=== PATIENT | female | born 1985 | race Two or more races ===

== ENCOUNTER → 2017-02-23 | Outpatient (CLI) | payer BC | LOC: M LRY 12:10 | DX: Z53.8 Procedure and treatment not carried out for other reasons (principal) ==

== ENCOUNTER → 2019-02-05 | Outpatient (CLI) | payer BC ==
[~2019-02-05] MED LIST: MOM30SS PO; MOTR200T44 PO; PERCOCET PO
[2019-02-07 11:12] LABS: HEPATITIS C VIRUS ABY INDEX 0.1 INDEX (<0.8); HIV 1&2 SCREEN CENTAUR NEGATIVE (NEGATIVE)
== END ==
LOC: M PLALAB 12:28
PROVIDERS: ATTEND Obstetrics & Gynecology
DX: Z11.3 Encounter for screening for infections with a predominantly sexual mode of transmission (principal)

== ENCOUNTER → 2019-02-17 | Outpatient (CLI) | payer BC ==
--- NOTE | 2019-02-17 17:45 | REP ---
DIAGNOSTIC MAMMOGRAM BILATERAL BREASTS WITH 3D TOMOSYNTHESIS AND BILATERAL BREAST ULTRASOUND: No family history of breast cancer. [facility] lifetime risk of breast cancer is 10.9%. The patient has a history of three long standing palpable lumps at 10 o'clock, 3 o'clock and 6 o'clock in the right breast. The areas are marked on the skin. The patient has had prior benign biopsy of a nodule in the right breast medially. This corresponds to one of the palpable lumps. Comparison is made with prior mammogram and ultrasound 10/22/2015. MLO and CC views of both breasts were performed with 3D tomosynthesis and additional compression views of the right breast. Oval fairly well circumscribed nodule is seen in the upper quadrant of the right breast at one of the palpable lumps, maximum diameter of the nodule is 3.6 cm. At 6 o'clock posteriorly at the site of another palpable lump there is a fairly well circumscribed and mildly lobulated nodule approximately 3.6 cm maximally. At 3 o'clock medially in the right breast there is a lobulated nodule with fairly well defined margins which has significantly increased in size when compared to the prior study. An adjacent biopsy clip was noted. This nodule measures 4.4 cm in diameter. There is another smaller oval fairly well circumscribed nodule in the upper outer quadrant of the right breast in the axillary tail region measuring about 1.1 cm in maximum diameter. There appear to be a couple adjacent axillary lymph nodes. In the left breast a fairly well circumscribed nodule is seen in the lower inner aspect measuring about 1 cm in diameter. Another nodule in the upper outer quadrant measures 7 mm in diameter. Moderate fibroglandular tissue is scattered bilaterally. No clustered microcalcifications are seen. Real-time sonographic evaluation is performed bilaterally. All of the nodules identified bilaterally are solid in appearance. In the right breast at 10 o'clock a bilobed solid mass measures 3.0 x 1.5 x 3.1 cm, at 3 o'clock 3.1 x 2.3 x 4.0 cm and at 6 o'clock 3.1 x 1.5 x 3.6 cm. The mass is at 6 o'clock and 10 o'clock appear new and the 3 o'clock mass has significantly increased in size when compared to the prior study of 10/22/2015. A smaller solid nodule more posteriorly in the outer quadrant of the right breast measures 1.4 x 0.8 x 1.4 cm. In the left breast the previous solid nodules at 12 o'clock measuring 8 mm maximally, at 2 o'clock measuring 9 mm maximally, at 8 o'clock measuring 8 mm maximally and at 9 o'clock measuring 7 mm maximally. IMPRESSION: ACR 4 suspicious. At the site of the 3 dominant palpable lumps in the right breast there are solid masses as discussed above with maximum diameter at the 10 o'clock mass 3.1 cm, at 3 o'clock 4.0, and 6 o'clock 3.6 cm. Two of the nodules appear new and one has significantly increased in size compared to 10/22/2015 exam, I would recommend at least ultrasound guided biopsy. Consideration should be made for surgical excision given the change compared to the 2016 exam, and their size. Recommend 6 month followup ultrasound for the posterior nodule in the right breast at 10 o'clock and also for the 4 subcentimeter nodules in the left breast. BIRADS 4: BI-RADS/ACR category 4 mammogram. Suspicious Abnormality - biopsy should be considered. This mammogram was interpreted with the aid of an FDA-approved computer-aided detection system. The patient states she had a clinical breast exam in 02/13/2019. The patient letter being requested is M4. Electronically Signed by Gianni Baig MD 02/20/2019 12:28 P
== END ==
LOC: M RAD 13:31
PROVIDERS: ATTEND Surgery
DX: R92.8 Other abnormal and inconclusive findings on diagnostic imaging of breast (principal); N63.10 Unspecified lump in the right breast, unspecified quadrant; N63.20 Unspecified lump in the left breast, unspecified quadrant
CPT/HCPCS: 76642; 77066; G0279

== ENCOUNTER 2019-04-01 07:32 | Day surgery (SDC) | payer BC ==
[~2019-04-01] VITALS: Ht 162.6 cm; Wt 78.7 kg
[~2019-04-01 07:32] MED LIST changes: +LEXA1TAB2 PO; +LIDOCAINE 2% INJ 100 MG/5 ML SDV (FOR ANES.) As Ordered ONE; +LR 1,000 ML IV ONE; +MIDAZOLAM INJ 2 MG/2 ML VIAL (J2250) As Ordered ONE; +NUVAMIS2 PV; +ONDANSETRON 4MG/2ML VIAL (J2405) As Ordered ONE; +ROCURONIUM BROMIDE 50 MG/5 ML VIAL As Ordered ONE; +ceFAZolin SOD 2 GM in IV 1 EA IV ONE; +dexameTHASONE 4 MG/ML 1ML VIAL (J1100) As Ordered ONE; +fentaNYL 100 MCG/2 ML INJECTION (J3010) As Ordered ONE; +propofoL 200 MG/20 ML VIAL As Ordered ONE
[2019-04-01] MEDS ORDERED: LIDOCAINE 1% SDV INJ 30 ML VIAL As Ordered ONE (10:42)
[2019-04-01] MEDS ORDERED: BUPIVACAINE HCL 0.25% 30 ML VIAL As Ordered ONE (10:42)
[2019-04-01] MEDS ORDERED: fentaNYL 100 MCG/2 ML INJECTION (J3010) As Ordered ONE (11:50)
[2019-04-01] MEDS ORDERED: ACETAMINOPHEN 1000MG 100ML IV BTL (OFIRMEV) (J0131 PER 10MG) As Ordered ONE (11:51)
[2019-04-01] MEDS ORDERED: METOCLOPRAMIDE INJ 10MG/2ML VIAL (J2765) As Ordered ONE (12:49)
[2019-04-01] MEDS ORDERED: fentaNYL 100 MCG/2 ML INJECTION (J3010) IV PRN (13:00)
[2019-04-01] MEDS ORDERED: HYDROMORPHONE HCL 0.5 MG/ 0.5 ML SYRINGE (J1170 PER 1) IV PRN (13:00)
[2019-04-01] MEDS ORDERED: LR 1,000 ML IV SCH (13:00)
[2019-04-01] MEDS ORDERED: oxyCODONE 5MG TAB PO PRN (13:00)
[2019-04-01] MEDS ORDERED: ONDANSETRON 4MG/2ML VIAL (J2405) IV PRN (13:00)
[2019-04-01] MEDS ORDERED: OXYC1TAB23 PO (13:17)
[2019-04-01] MEDS ORDERED: PILL CUTTER 1 EACH XX ONE (13:20)
[2019-04-01 14:55] VITALS: BP 120/77
--- NOTE | 2019-04-01 22:47 | ROOPDOC ---
[facility] Report Of Operation Report of Operation DATE OF PROCEDURE: 04/01/19 PREPROCEDURE DIAGNOSES: Right breast fibroadenomas POSTPROCEDURE DIAGNOSES: Right breast fibroadenomas PROCEDURE: Right breast excisional biopsy x3 SURGEON: Zev Perry CARE ASSOCIATE: ANESTHESIA: general ESTIMATED BLOOD LOSS: Approximately 5 mL. COMPLICATIONS: none REMARKS: 3 large breast masses with appearance of fibroadenomas DESCRIPTION OF PROCEDURE: INDICATIONS: Ms. 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 Since that time the fibroadenoma at 3:00 grew substantially. Patient also developed similar appearing breast masses at 6:00 and 10:00. The fibroadenomas measured between 3 and 4 cm each. Patient presented to the clinic for evaluation and discussion regarding removal of large fibroadenomas. Base on the size of the fibroadenomas, excision was recommended after obtaining full mammographic and sonographic evaluation. All three lesions had similar appearance consistent with fibroadenomas. Risks and possible complications of surgical procedure including bleeding, infection and injury to surrounding structures were explained to the patient and she wished to proceed. Consent was signed. The site of palpable lump was marked in PreOp and my initials were placed on the operative site (right). DETAILS: Patient was taken to the operating room and placed supine on the operating room table. A sign in was called stating patients name, date of and the procedure to be done. Preoperative antibiotics were infused. Smooth induction of general anesthesia was done. Patients hands were extended on arm rests and placed in the protective foam. Care was taken not to over extend patients arms. Patients right breast was prepped and draped in the usual fashion. The breast masses were confirmed in the operating room with the ultrasound perioperatively and were found to be again at 3:00, 6:00 and 10:00. No localizing wire had to be placed as the lesions were palpable. Appropriate time out was called confirming patients name, date of and proc edure to be done. Local anesthetic using 1% lidocaine and 0.25 % Marcaine 50/50 mix was injected at the planned incision site at the inferior aspect of the right areola. Inferior periareolar incision was made with scalpel number 15. Adequate flaps were raised at the areolar border. Dissection was started carried laterally toward the 3:00 mass. Combination of sharp and blunt dissection was used to dissect the mass. The 3:00 mass was resected as a whole and had an appearance of fibroadenoma. A ribbon clip was noted imbedded in the capsule of the mass. No localization suture were placed. Mass was marked with patient name and label right breast mass 3:00 and sent to pathology at the end of the case. Next, my attention was turned toward the mass at 6:00. Again, combination of sharp and blunt dissection was used to dissect the mass from the surrounding tissues. Mass was excised as a whole and had appearance of fibroadenoma. Mass was labeled with patients name and label right breast mass 6:00. No marking nix tures were placed. Mass was passed the pathology at the end of the case Finally, my attention was turned toward the mass at 10:00. Again, combination of sharp and blunt dissection was used to dissect the mass from the surrounding tissues. Mass was excised as a whole and had appearance of fibroadenoma. Mass was labeled with patients name and label right breast mass 10:00. No marking sutures were placed. Mass was passed the pathology at the end of the case. All three right breast cavities were irrigated thoroughly and hemostasis was assured. The deep layers were approximated with 3-0 Vicryl stitch to obliterate the space and to decrease possible breast deformity formation. The dermis was closed with 3-0 Monocryl and skin was closed with 4-0 Monocryl. Steri Strips were placed over the incision. All sponge and instrument counts were correct. Patient emerged from the anesthesia without any problems. Fluffs were placed over the operating site and patients lower chest was wrapped snuggly in the HARRISON wrap. Patient tolerated procedure well and was taken to recovery unit in stable condition. ZEV PERRY DO Apr 01, 2019 22:46
== END 2019-04-01 15:00 | disposition home or self-care (01) ==
LOC: M SDC 07:32
PROVIDERS: ATTEND Surgery
DX: D24.1 Benign neoplasm of right breast (principal); N60.21 Fibroadenosis of right breast; F32.9 Major depressive disorder, single episode, unspecified; F41.9 Anxiety disorder, unspecified; Z79.899 Other long term (current) drug therapy; Z87.891 Personal history of nicotine dependence
CPT/HCPCS: 19120; 81025; 88305; J0131; J0690; J1100; J2250; J2405; J2765; J3010

== ENCOUNTER → 2021-11-14 | Outpatient (CLI) | payer BC ==
[~2021-11-14] MED LIST changes: +ISOVUE-370 76% 100ML VIAL As Ordered ONE; -LIDOCAINE 2% INJ 100 MG/5 ML SDV (FOR ANES.) As Ordered ONE; -LR 1,000 ML IV ONE; -MIDAZOLAM INJ 2 MG/2 ML VIAL (J2250) As Ordered ONE; -ONDANSETRON 4MG/2ML VIAL (J2405) As Ordered ONE; +OXYC1TAB23 PO; -ROCURONIUM BROMIDE 50 MG/5 ML VIAL As Ordered ONE; -ceFAZolin SOD 2 GM in IV 1 EA IV ONE; -dexameTHASONE 4 MG/ML 1ML VIAL (J1100) As Ordered ONE; -fentaNYL 100 MCG/2 ML INJECTION (J3010) As Ordered ONE; -propofoL 200 MG/20 ML VIAL As Ordered ONE
[2021-11-14 12:09] LABS: BASO % 0.7 % (0.0-1.0); EOS # 0.2 10^3/uL (0.0-0.5); EOS % 3.8 % (0.0-3.0); HEMATOCRIT 38.1 % (36.0-47.0); LYMPH # 1.2 10^3/uL (1.5-5.0); LYMPH % 21.5 % (24.0-44.0); MEAN CORPUSCULAR HEMOGLOBIN 30.2 pg (27.0-33.0); MEAN CORPUSCULAR HGB CONC 34.1 g/dl (32.0-36.5); MEAN CORPUSCULAR VOLUME 88.4 fl (80.0-96.0); MONO # 0.3 10^3/uL (0.0-0.8); MONO % 5.4 % (2.0-8.0); NEUTROPHILS # 3.8 10^3/uL (1.5-8.5); NEUTROPHILS % 68.4 % (36.0-66.0); PLATELET COUNT, AUTOMATED 168 10^3/uL (150-450); RED BLOOD COUNT 4.31 10^6/uL (4.00-5.40); WHITE BLOOD COUNT 5.6 10^3/uL (4.0-10.0)
[2021-11-14 12:39] LABS: ALBUMIN 3.7 GM/DL (3.2-5.2); ALT/SGPT 21 U/L (12-78); AMYLASE 40 U/L (25-115); BLOOD UREA NITROGEN 9 MG/DL (7-18); CALCIUM LEVEL 8.5 MG/DL (8.5-10.1); CARBON DIOXIDE LEVEL 27 MEQ/L (21-32); CHLORIDE LEVEL 106 MEQ/L (98-107); CREATININE FOR GFR 0.58 MG/DL (0.55-1.30); GLOMERULAR FILTRATION RATE > 60.0 (>60); GLUCOSE, FASTING 81 MG/DL (70-100); POTASSIUM SERUM 3.7 MEQ/L (3.5-5.1); SODIUM LEVEL 139 MEQ/L (136-145); TOTAL PROTEIN 6.4 GM/DL (6.4-8.2)
== END ==
LOC: M RAD 10:51
PROVIDERS: ATTEND Physician Assistant
DX: R22.1 Localized swelling, mass and lump, neck (principal)
CPT/HCPCS: 70491; 80053; 82150; 85025; 86140; Q9967

== ENCOUNTER → 2022-01-09 | Outpatient (CLI) | payer BC ==
[~2022-01-09] MED LIST changes: +ALLE24TA7 PO; +FLUTISP; -ISOVUE-370 76% 100ML VIAL As Ordered ONE; +ONDA4TAB6 PO
== END ==
LOC: M RAD 12:02
PROVIDERS: ATTEND Physician Assistant
DX: R22.1 Localized swelling, mass and lump, neck (principal)

== ENCOUNTER 2022-01-11 09:02 | Emergency (ER) | payer BC ==
[~2022-01-11] VITALS: Ht 162.6 cm; Wt 85.1 kg
[~2022-01-11 09:02] MED LIST changes: -ALLE24TA7 PO; -FLUTISP; -ONDA4TAB6 PO
[2022-01-11] MEDS ORDERED: FLUTISP (09:13)
[2022-01-11] MEDS ORDERED: ALLE24TA7 PO (09:13)
[2022-01-11] MEDS ORDERED: ONDANSETRON 4MG 2ML VIAL IV ONE (10:50)
[2022-01-11] MEDS ORDERED: NS 1,000 ML IV ONE (10:50)
[2022-01-11 12:00] LABS: BASO % 0.3 % (0.0-1.0); EOS # 0.1 10^3/uL (0.0-0.5); EOS % 0.7 % (0.0-3.0); HEMATOCRIT 40.5 % (36.0-47.0); HEMOGLOBIN 13.8 g/dl (12.0-15.5); LYMPH % 8.5 % (24.0-44.0); MEAN CORPUSCULAR HEMOGLOBIN 29.5 pg (27.0-33.0); MEAN CORPUSCULAR HGB CONC 34.1 g/dl (32.0-36.5); MEAN CORPUSCULAR VOLUME 86.5 fl (80.0-96.0); MONO # 0.6 10^3/uL (0.0-0.8); MONO % 5.4 % (2.0-8.0); NEUTROPHILS # 9.9 10^3/uL (1.5-8.5); NEUTROPHILS % 84.5 % (36.0-66.0); PLATELET COUNT, AUTOMATED 172 10^3/uL (150-450); RED BLOOD COUNT 4.68 10^6/uL (4.00-5.40); WHITE BLOOD COUNT 11.7 10^3/uL (4.0-10.0)
[2022-01-11 12:33] LABS: BILIRUBIN,DIRECT 0.4 MG/DL (<0.4); TOTAL PROTEIN 6.5 G/DL (5.7-8.2)
[2022-01-11 13:08] VITALS: BP 127/78
[2022-01-11] MEDS ORDERED: ONDA4TAB6 PO (13:11)
== END 2022-01-11 13:23 | disposition home or self-care (01) ==
LOC: M ED 09:02
DX: K80.70 Calculus of gallbladder and bile duct without cholecystitis without obstruction (principal); K82.8 Other specified diseases of gallbladder; R51.9 Headache, unspecified; Z79.899 Other long term (current) drug therapy
CPT/HCPCS: 76705; 80047; 80076; 83690; 84702; 85025; 96361; 96374; 99284; J2405

== ENCOUNTER → 2022-02-03 | Outpatient (CLI) | payer BC ==
[~2022-02-03] MED LIST changes: +ALLE24TA7 PO; +FLUTISP; +ONDA4TAB6 PO
[2022-02-03 13:20] LABS: ALKALINE PHOSPHATASE 77 U/L (46-116); ALT/SGPT 18 U/L (7.0-40); AST/SGOT 18 U/L (<34); BILIRUBIN,TOTAL 0.8 MG/DL (0.3-1.2); BLOOD UREA NITROGEN 11 MG/DL (9-23); CALCIUM LEVEL 8.9 MG/DL (8.5-10.1); CARBON DIOXIDE LEVEL 24 MMOL/L (20-31); CHLORIDE LEVEL 106 MMOL/L (98-107); CREATININE FOR GFR 0.54 MG/DL (0.55-1.30); GLOMERULAR FILTRATION RATE > 60.0 (>60); GLUCOSE, FASTING 89 MG/DL (60-100); PHOSPHORUS LEVEL 3.1 MG/DL (2.5-4.9); POTASSIUM SERUM 4.4 MMOL/L (3.5-5.1); SODIUM LEVEL 141 MMOL/L (136-145); THYROID STIMULATING HORMONE 0.514 uIU/ML (0.55-4.78); TOTAL 25(OH) VITAMIN D 30.7 NG/ML (20.0-100.0); TOTAL PROTEIN 6.4 G/DL (5.7-8.2)
[2022-02-03 13:21] LABS: FREE T4 1.13 NG/DL (0.89-1.76)
[2022-02-03 13:24] LABS: THYROID PEROXIDASE ANTIBODY < 28.0 U/ML (<60.0)
[2022-02-07 13:07] LABS: THRYOGLOBULIN ANTIBODIES (ATA) < 1.0 IU/mL (0.0-0.9); THYROGLOBULIN QUANTITATIVE 16.5 ng/mL (1.5-38.5)
== END ==
LOC: M LABDRWAD 09:22
PROVIDERS: ATTEND Physician Assistant
DX: D44.0 Neoplasm of uncertain behavior of thyroid gland (principal)

== ENCOUNTER → 2023-12-17 | Outpatient (CLI) | payer OTHER ==
[~2023-12-17] MED LIST changes: +ETON1VAG7 PV; -NUVAMIS2 PV; +ONDA-282 PO; -ONDA4TAB6 PO
== END ==
LOC: M RAD 08:13
PROVIDERS: ATTEND Physician Assistant
DX: E04.1 Nontoxic single thyroid nodule (principal)